=== PATIENT | female | born 1950 | race Caucasian/White ===

== ENCOUNTER 2024-10-23 09:43 | Inpatient (IN) | payer BC, MEDICARE ==
[2024-10-23] MEDS ORDERED: Bisacodyl 10 MG SUPP PR PRN (18:16)
[2024-10-23] MEDS ORDERED: Loperamide HCl 2 MG CAP PO PRN ×2 (18:16)
[2024-10-23] MEDS ORDERED: Bisacodyl 5 MG TAB PO PRN (18:16)
[2024-10-23] MEDS: Simvastatin 20 MG TAB PO SCH (20:56)
[2024-10-23] MEDS: Metoprolol Succinate XL 25 MG ER.TAB PO SCH (20:56)
[2024-10-23] MEDS: Acetaminophen 325 MG TAB PO PRN (20:56)
[2024-10-23] MEDS: Pantoprazole 40 MG DR.TAB PO SCH (20:56)
[2024-10-23] MEDS: Aspirin 81 mg Enteric Coated Tablet PO SCH (20:56)
[2024-10-24 06:08] VITALS: BMI 25.9
[2024-10-24] MEDS: Hydrochlorothiazide 25 MG TAB PO SCH (08:36)
[2024-10-24] MEDS: Cholecalciferol 1,000 UNITS (25 MCG) TAB PO SCH (08:36)
[2024-10-24] MEDS: Lisinopril 20 MG TAB PO SCH (08:36)
[2024-10-24] MEDS ORDERED: Lantiseptic Ointment 130 GM JAR TOP PRN (20:47)
[2024-10-24] MEDS: Lantiseptic Ointment 130 GM JAR TOP SCH (21:52)
[2024-10-25] MEDS: Senokot S 8.6-50 MG TAB PO PRN (17:22)
[2024-10-26] MEDS: Lisinopril 20 MG TAB PO SCH (08:52)
[2024-10-26] MEDS: Hydrochlorothiazide 25 MG TAB PO SCH (08:52)
[2024-10-27 05:08] LABS: Band 2 % (5-11); Hemoglobin 8.2 g/dL (12.0-16.0); Hypochromia SLIGHT = 6-15 cells (100X) (0-5/hpf); Lymphocytes 19 % (21-51); MDiff Complete? YES; Macrocytosis SLIGHT = 6-15 cells (100X) (0-5/hpf); Mean Corpuscular HGB CONC 31.6 g/dL (32.0-36.0); Mean Corpuscular Hemoglobin 33.4 pg (27.0-31.0); Mean Corpuscular Volume 105.7 fl (78.0-98.0); Mean Platelet Volume 6.2 fL (7.4-10.4); Monocytes 3 % (0-10); Neutrophil 76 % (42-75); Platelet Count 551 10x3/uL (130-400); RBC Distribution Width 13.4 % (11.5-14.5); Red Blood Cell (RBC) Count 2.46 mill/uL (4.20-5.40); White Blood Cell (WBC) Count 7.8 10x3/uL (4.8-10.8)
[2024-10-27] MEDS: HYDROXYUREA PO SCH (14:31)
[2024-10-28] MEDS: HYDROXYUREA PO SCH (09:13)
[2024-10-30 05:14] LABS: Band 2 % (5-11); Hematocrit 27.1 % (36.0-47.0); Hemoglobin 8.7 g/dL (12.0-16.0); Lymphocytes 14 % (21-51); MDiff Complete? YES; Mean Corpuscular HGB CONC 31.9 g/dL (32.0-36.0); Mean Corpuscular Hemoglobin 33.3 pg (27.0-31.0); Mean Corpuscular Volume 104.3 fl (78.0-98.0); Mean Platelet Volume 6.4 fL (7.4-10.4); Monocytes 8 % (0-10); Neutrophil 76 % (42-75); Platelet Count 616 10x3/uL (130-400); RBC Distribution Width 13.9 % (11.5-14.5); White Blood Cell (WBC) Count 6.8 10x3/uL (4.8-10.8)
[2024-10-30] MEDS: HYDROXYUREA PO SCH (08:53)
[2024-10-30] MEDS: Lisinopril 10 MG TAB PO SCH (11:25)
[2024-10-31] MEDS: Lisinopril 10 MG TAB PO SCH (08:34)
[2024-11-03] MEDS: Hydroxyurea 500 MG CAP PO SCH (08:30)
[2024-11-06 05:08] LABS: Band 3 % (5-11); Hematocrit 26.6 % (36.0-47.0); Hemoglobin 8.5 g/dL (12.0-16.0); Lymphocytes 33 % (21-51); MDiff Complete? YES; Mean Corpuscular HGB CONC 31.9 g/dL (32.0-36.0); Mean Corpuscular Hemoglobin 32.7 pg (27.0-31.0); Mean Corpuscular Volume 102.2 fl (78.0-98.0); Mean Platelet Volume 5.9 fL (7.4-10.4); Monocytes 17 % (0-10); Neutrophil 47 % (42-75); Platelet Count 684 10x3/uL (130-400); RBC Distribution Width 13.8 % (11.5-14.5); White Blood Cell (WBC) Count 4.7 10x3/uL (4.8-10.8)
[2024-11-06 05:15] LABS: Anion Gap 15 mmol/L (10-20); BUN (Urea Nitrogen) 18 mg/dL (9.8-20.1); Calc. Creatinine Clearance 59 mL/min (70-130); Calcium 8.7 mg/dL (7.8-10.44); Carbon Dioxide 24 mmol/L (23-31); Chloride 103 mmol/L (98-107); Estimated GFR 73; Glucose 91 mg/dL (83-110); Potassium 3.7 mmol/L (3.5-5.1); Sodium 138 mmol/L (136-145)
[2024-11-06] MEDS: Hydroxyurea 500 MG CAP PO SCH (08:45)
[2024-11-06] MEDS: Hydrochlorothiazide 25 MG TAB PO SCH (08:54)
[2024-11-06 23:06] LABS: Iron 31 ug/dL (50-170); Iron Binding Capacity, Total 303 mcg/dL (265-497)
[2024-11-07 10:48] LABS: Bilirubin Negative (Negative); Blood, Urine Small (Negative); Clarity Cloudy (Clear); Glucose, Urine (Dipstick) Negative (Negative); Ketone, Urine Negative (Negative); Leukocyte Moderate (Negative); Nitrite Positive (Negative); Protein, Urine (Dipstick) 30 mg/dL (Neg-Trace); Specific Gravity, Urine 1.015 (1.005-1.030); Urobilinogen 0.2 mg/dL (Less than 2)
[2024-11-07 10:51] LABS: CAUTI Indications for Culture Dysuria,urgency,freq; Squamous Epithelial 0-3 HPF (0-3); WBC/HPF Greater than 50 HPF (0-3)
[2024-11-07 10:52] LABS: Bacteria/HPF 2+ HPF (None Seen)
[2024-11-07 10:53] LABS: Urine Culture Reflex Yes Yes
[2024-11-07] MEDS: Sulfameth/Trimethoprim DS 800-160mg TAB PO SCH ×2 (13:03→20:47)
[2024-11-07] MEDS: Nystatin Cream 15 GM TUBE TOP SCH (20:48)
[2024-11-08 06:06] VITALS: BMI 24.5
[2024-11-09 08:09] VITALS: BP 116/63; TEMP 98.2
== END 2024-11-09 10:15 | disposition home or self-care (01) | DRG 946 ==
LOC: MADMS 18:01
PROVIDERS: ADMIT Family Medicine; ATTEND Family Medicine
PROC: F07Z9ZZ Gait Training/Functional Ambulation Treatment (ICD-10-PCS; principal; 2024-10-23)
DX: R53.81 Other malaise (principal); D64.9 Anemia, unspecified; R26.89 Other abnormalities of gait and mobility; D47.3 Essential (hemorrhagic) thrombocythemia; Z96.641 Presence of right artificial hip joint; I10 Essential (primary) hypertension; E87.5 Hyperkalemia; Z79.899 Other long term (current) drug therapy; Z79.82 Long term (current) use of aspirin; Z87.898 Personal history of other specified conditions
CPT/HCPCS: 36415; 80048; 81001; 82728; 83540; 83550; 85025; 87077; 87086; 87186